=== PATIENT | female | born 1955 | race Caucasian/White ===

== ENCOUNTER 2021-07-19 06:33 | Day surgery (SDC) | payer MEDICARE ==
[~2021-07-19] VITALS: Ht 182.9 cm; Wt 109.7 kg
[2021-07-19] VITALS (19 sets, daily range): BP systolic 81–161; BP diastolic 45–78
[2021-07-19] MEDS ORDERED: normal saline 1,000 ML IV SCH (06:50)
[2021-07-19] MEDS ORDERED: diphenhydrAMINE 25mg capsule PO PRN (06:50)
[2021-07-19] MEDS ORDERED: ASPI-1264 PO (07:11)
[2021-07-19] MEDS ORDERED: METO5SOL PO (07:11)
[2021-07-19] MEDS ORDERED: METO-395 PO (07:13)
[2021-07-19] MEDS ORDERED: PIOG30TA10 PO (07:14)
[2021-07-19] MEDS ORDERED: CLOP75TA15 PO (07:14)
[2021-07-19] MEDS ORDERED: ESOM20CA PO (07:15)
[2021-07-19] MEDS ORDERED: PRAV10TA39 PO (07:15)
[2021-07-19] MEDS ORDERED: NITR0.4T51 SL (07:16)
[2021-07-19 07:36] LABS: BASOPHILS # (AUTO) 0.1 X10'3 (0-0.2); EOSINOPHILS # (AUTO) 0.4 X10'3 (0-0.9); EOSINOPHILS % (AUTO) 5.8 % (0-6); LYMPHOCYTES # (AUTO) 1.2 X10'3 (1.1-4.8); LYMPHOCYTES % (AUTO) 17.7 % (21-51); MEAN CORPUSCULAR HGB CONC 33.3 g/dL (33.0-36.5); MEAN CORPUSCULAR VOLUME 90.2 FL (78-98); MEAN PLATELET VOLUME 8.9 FL (7.4-10.4); MONOCYTES # (AUTO) 0.3 X10'3 (0-0.9); MONOCYTES % (AUTO) 4.9 % (2-12); NEUTROPHILS % (AUTO) 70.6 % (42-75); PLATELET COUNT 245 X10'3 (140-440); RED BLOOD COUNT 4.65 X10'6 (4.20-5.60); RED CELL DISTRIBUTION WIDTH 14.6 % (11.5-14.5)
[2021-07-19] MEDS ORDERED: verapamil 2.5 mg/ml inj IV ONE (08:08)
[2021-07-19] MEDS ORDERED: midazolam 1 mg/ML 2ml injection ONE ×2 (08:08→09:32)
[2021-07-19] MEDS ORDERED: nitroGLYCERIN-Tridil 50MG/D5W 250 ML IV ONE (08:08)
[2021-07-19] MEDS ORDERED: iohexol 350 MG/ML 50ML vial IV ONE (08:09)
[2021-07-19] MEDS ORDERED: iohexol 350MG/ML 100ml bottle IV ONE (08:09)
[2021-07-19] MEDS ORDERED: LIDOcaine 1% (10mg/ml)w/preservative injection 20ml MDV ONE (08:09)
[2021-07-19] MEDS ORDERED: heparin 1,000unit/ml 10ml vial 10 ML ONE (08:09)
[2021-07-19] MEDS ORDERED: fentaNYL/PF 50MCG/1 ML 2ML syringe ONE (08:09)
[2021-07-19 08:12] LABS: ALBUMIN 3.5 G/DL (3.4-5.0); ANION GAP 12 (8-16); BLOOD UREA NITROGEN 13 MG/DL (7-18); BUN/CREATININE RATIO 15.5 (6.6-38.0); CALCIUM 8.7 MG/DL (8.5-10.1); CHLORIDE 103 MMOL/L (99-107); CREATININE 0.84 MG/DL (0.40-0.90); GLUCOSE 149 MG/DL (70-104); MAGNESIUM 1.9 MG/DL (1.5-2.4); POTASSIUM 3.8 MMOL/L (3.5-5.1); SODIUM 143 MMOL/L (135-145); TOTAL CARBON DIOXIDE 27.9 MMOL/L (24-32); eGFR 68 ML/MIN
[2021-07-19] MEDS ORDERED: ondansetron/PF 4mg/2ml inj IV PRN (10:10)
[2021-07-19] MEDS ORDERED: proCHLORperazine 10 MG/2 ml inj IV PRN (10:15)
[2021-07-19] MEDS ORDERED: HYDROcodone/acetaminophen 5mg/325mg tablet PO PRN (10:15)
[2021-07-19] MEDS ORDERED: HYDROcodone/acetaminophen 10/325mg tab PO PRN (10:15)
[2021-07-19] MEDS ORDERED: acetaminophen 325mg tablet PO PRN ×2 (10:15→10:50)
== END 2021-07-19 13:30 | disposition home or self-care (01) ==
LOC: SSTAY O 06:33
PROVIDERS: ATTEND Internal Medicine Cardiovascular Disease
DX: R07.89 Other chest pain (principal); I25.110 Atherosclerotic heart disease of native coronary artery with unstable angina pectoris; E11.9 Type 2 diabetes mellitus without complications; I10 Essential (primary) hypertension; F17.210 Nicotine dependence, cigarettes, uncomplicated; Z95.5 Presence of coronary angioplasty implant and graft; Z79.899 Other long term (current) drug therapy
CPT/HCPCS: 36415; 80048; 83735; 85025; 85610; 93005; 93458; 99152; C1769; C1894; J1644; J2250; J3010; J3490; J7030; Q0163; Q9967; 99153; A4620; A5120